=== PATIENT | female | born 1985 | race Caucasian/White ===

== ENCOUNTER → 2020-08-22 | Day surgery (SDC) | payer OTHER ==
[~2020-08-22] MED LIST: BUPROPION XL300 MG PO; NORCO 5-325 TA1 EACH PO; NORCO 5/3251 EACH PO; ONDANSETRON HCL8 MG PO; PHENTERMINE H37.5 M1 PO; SYNTHROID 0.1M0.1 MG PO
[2020-08-22 11:12] LABS: HCG (URINE) SCREEN NEGATIVE (NEGATIVE)
[2020-08-22 11:16] LABS: HCT 39.4 % (37.0-47.0); MCH 32.9 pg (25.0-31.0); MCHC 35.5 g/dL (32.0-36.0); MCV 92.7 fL (78.0-100.0); MPV 10.2 fL (6.0-9.5); RBC 4.25 M/uL (4.20-5.40); RDW 11.9 % (11.5-14.0); WBC 12.2 K/uL (4.0-10.5)
[2020-08-22 11:35] LABS: ALBUMIN 3.4 g/dL (3.4-5.0); BILIRUBIN - TOTAL 0.4 mg/dL (0.2-1.0); BUN/CREAT RATIO (CALC) 19.1 RATIO; CREATININE 0.68 mg/dL (0.51-0.95); POTASSIUM 3.9 mmol/L (3.5-5.1); TOTAL PROTEIN 7.4 g/dL (6.4-8.2)
== END | disposition home or self-care (01) ==
LOC: FAS 10:30
PROVIDERS: Anesthesiology; Surgery
DX: K80.10 Calculus of gallbladder with chronic cholecystitis without obstruction (principal); E03.9 Hypothyroidism, unspecified; Z87.891 Personal history of nicotine dependence; Z83.3 Family history of diabetes mellitus
CPT/HCPCS: 36415; 74300; 80053; 84703; C1758; J1100; J1170; J1885; J2250; J2270; J2405; J2550; J2704; J2710; J3010; J7120; Q9967